=== PATIENT | female | born 1985 | race Caucasian/White ===

== ENCOUNTER 2017-07-01 21:12 | Emergency (ER) | payer OTHER ==
[~2017-07-01] VITALS: Ht 165.1 cm; Wt 59.1 kg
[2017-07-01 21:14] VITALS: BP 158/88
[2017-07-01] MEDS ORDERED: ZOFRAN ODT4 MG PO (21:47)
[2017-07-01 21:57] VITALS: PULSE 90
== END 2017-07-01 21:57 | disposition home or self-care (01) ==
LOC: COL.ER 21:12
DX: R10.9 Unspecified abdominal pain (principal); Z98.818 Other dental procedure status

== ENCOUNTER 2017-11-30 20:03 | Emergency (ER) | payer OTHER ==
[~2017-11-30] VITALS: Ht 165.1 cm; Wt 49.5 kg
[~2017-11-30 20:03] MED LIST: ZOFRAN ODT4 MG PO
[2017-11-30 20:08] VITALS: BP 148/85; PULSE 74; TEMP 97.7
== END 2017-11-30 21:19 | disposition home or self-care (01) ==
LOC: COL.ER 20:03
DX: T23.252A Burn of second degree of left palm, initial encounter (principal); Z23 Encounter for immunization; X16.XXXA Contact with hot heating appliances, radiators and pipes, initial encounter; Y92.009 Unspecified place in unspecified non-institutional (private) residence as the place of occurrence of the external cause